=== PATIENT | male | born 2000 | race Two or more races ===

== ENCOUNTER 2023-03-01 15:57 | Emergency (ER) | payer OTHER ==
[~2023-03-01] VITALS: Ht 167.6 cm; Wt 55.3 kg
[2023-03-01] MEDS ORDERED: IBUPROFEN 600 MG TABLET PO ONE (16:30)
[2023-03-01] MEDS ORDERED: IBUPROFEN 600 MG TABLET ONE (16:56)
[2023-03-01 17:31] VITALS: BP 141/80; TEMP 98.4; O2SAT 98
== END 2023-03-01 17:31 | disposition home or self-care (01) ==
LOC: ER 16:03
DX: S50.02XA Contusion of left elbow, initial encounter (principal); Z60.2 Problems related to living alone; W01.0XXA Fall on same level from slipping, tripping and stumbling without subsequent striking against object, initial encounter; Y93.89 Activity, other specified; Y92.89 Other specified places as the place of occurrence of the external cause; Y99.0 Civilian activity done for income or pay
CPT/HCPCS: 73080-TC